=== PATIENT | male | born 1945 | race Caucasian/White ===

== ENCOUNTER 2016-10-28 22:08 | Inpatient (IN) ==
--- NOTE | 2016-10-28 22:56 | Emergency Department Note ---
I, Abbi Trimble, am scribing for, and in the presence of, Shante Adams DO 22: 54. I, Shante Adams DO, personally performed the services described in this documentation, ascribed by Abbi Trimble in my presence, and it is both accurate and complete . Arrival - Arrival Chief Complaint: Extremity Injury Stated Complaint: EXT C/O ED Nursing Triage Note: PT ARRIVES VIA EMS WITH COMPLAINTS OF RIGHT EXT PAIN. PT WAS WALKING AND TURNED TO GO AROUND OBJECT AT HOME AND FELL. PER EMS RIGHT LEG WAS NOTED TO BE DEFORMED AND ROTATED ON SCENE. PT WAS PLACED IN TRACTION ON SCENE. + SENSORY/MOTOR FUNCTION NOTED AT TIME OF TRIAGE. + PEDAL PULSE NOTED. PT DENIES ANY LOC, OR HITTING HEAD WITH FALL AT HOME. PT WAS GIVEN 100MCG FENTANYL IN ROUTE AND IS NOTED TO HAVE SOME SLURRED SPEACH AT THIS TIME Mode of Arrival: Stretcher Limitations: No Limitations Source: Patient Time Seen by Provider: 10/28/16 22:42 - History of Present Illness HPI Narrative: Pt is a 71 y/o male that was brought to the ED via EMS with c/o right hip pain s /p a fall that occurred at home earlier today. Pt states he got up to unplug an electric heater when he turned the wrong way and fell on his right side. Pt reports he has broken his hip in the past and had to have a mario put in, and he reports he thinks he broke his hip again. Per EMS, pt's right leg was deformed and rotated on scene and EMS placed leg in a traction on scene. He states he has trouble talking sometimes and it is normal for him. Pt reports he is a liver transplant pt due to Hep C and he sees Dr. Aquino. Pt's PCP is Dr. Sarmiento at the [facility]. Pt denies a history of stroke. No other complaints/pain in ED at this time. Onset (ago): hour(s) Consistency: constant Severity: moderate Severity scale (1-10): 6 Quality: other Allergies/Adverse Reactions: Allergies Allergy/AdvReac Type Severity Reaction Status Date / Time No Known Allergies Allergy Verified 10/08/15 07:30 Home Medications: Home Medications Medication Instructions Recorded Confirmed Type Aspirin [Ecotrin] 81 mg PO DAILY 10/01/15 10/28/16 History Carbidopa/Levodopa 25-100 [Sinemet 1 tablet PO BEDTIME 10/01/15 10/28/16 History 25-100] Cholecalciferol (Vitamin D3) 2,000 unit PO DAILY 10/01/15 10/28/16 History [Vitamin D3] Furosemide Tab [Lasix Tab] 40 mg PO DAILY 10/01/15 10/28/16 History Nifedipine [Nifedipine ER] 30 mg PO DAILY 10/01/15 10/28/16 History cycloSPORINE [Cyclosporine] 75 mg PO BID 10/01/15 10/28/16 History Omeprazole 20 mg PO AC BREAKFAST 10/04/15 10/28/16 History Calcium Carbonate/Vitamin D3 2 each PO DAILY 03/30/16 10/28/16 History [Calcium 600 + Vit D 400 Tablet] Docusate Sodium 100 mg PO BID 03/30/16 10/28/16 History Multivitamin with Minerals 1 each PO DAILY 03/30/16 10/28/16 History [Multivitamins with Minerals] Review of System - Review of System 12 point system: reviewed and no additional remarkable complaints except as stated - Review of System Respiratory: Absent: cough Cardiovascular: Absent: chest pain Gastrointestinal: Absent: abdominal pain Musculoskeletal: Present: leg pain (right leg and hip pain s/p fall) Neurological: Absent: headache Psychiatric: Absent: anxiety Medical,Surgical,& Family Hx - Medical History Neurology: No history of: Seizures HEENT: History of: Ear Problem (hearing aids) Rheumatology: History of;: Rheumatological Problems (arthritis in back) Respiratory: History of: Obstructive Sleep Apnea (c pap) Gastrointestinal: History of: GERD, Hepatitis (hep c), Liver Problems (liver transplant 2002), Polyps Hematology: No history of: Blood Transfusion Reaction Other: History of: Cancer (skin ca removed 2014) No history of: Anesthesia Reactions - Surgical History Thoracic Surgeries: Surgical HX of;: Organ Transplant (liver) Abdominal Surgeries: Surgical HX of: Colonoscopy, EGD - Family History Family History: Denies;: Family Cancer - Social History Smoking Status: Never smoker Frequency of Alcohol Use: None Type of Drug Use: None Exam Vital Signs: Vital Signs Temperature 98.3 F 10/28/16 22:08 Pulse Rate 62 10/28/16 23:49 Respiratory Rate 14 10/28/16 23:49 Blood Pressure 167/77 10/28/16 23:49 O2 Sat by Pulse Oximetry 100 10/28/16 23:49 - General General appearance: alert, in no apparent distress, other (slight studder which is normal for him) - Head Head exam: Present: atraumatic, normocephalic - Eye Eye exam: Present: PERRL, EOMI - ENT ENT exam: Present: mucous membranes moist. Absent: mucous membranes dry - Neck Neck exam: Present: full ROM. Absent: tenderness - Chest Chest inspection: Present: symmetric chest wall rise. Absent: tenderness - Respiratory Respiratory exam: Present: normal lung sounds bilaterally. Absent: respiratory distress - Cardiovascular Cardiovascular exam: Present: regular rate, normal rhythm, normal heart sounds - Abdominal Exam Abdominal exam: Present: soft. Absent: tenderness - Extremities Exam Extremities exam: Present: other (right leg externally rotated and shortened even with traction on) - Neurological Exam Neurological exam: Present: alert, oriented X3, CN II-XII intact. Absent: motor sensory deficit - Psychiatric Psychiatric exam: Present: normal affect, normal mood - Skin Skin exam: Present: warm, dry Course Course Narrative: spoke with DR Leach and DR Hill and will admit to DR Kumar with Dr Whitman to do ORIF in the am. pt is stable at this time Results - Labs CBC & BMP: 10/28/16 22:57 10/28/16 22:57 Disposition Clinical Impression: Femur fracture, right Case discussed with: patient Disposition: Still a Patient Condition: Stable Time of Disposition: 00:15
[2016-10-28 23:10] LABS: Basophils # 0.1 10*3/uL (0.0-0.2); Basophils % 0.7 % (0.0-0.8); Eosinophils # 0.1 10*3/uL (0.0-0.87); Eosinophils % 1.1 % (0.00-10.9); Hematocrit 31.7 VOL% (42.0-52.0); Hemoglobin 10.4 GM/DL (14.0-18.0); Immature Granulocytes % 0.6 %; Immature Granulocytes Absolute 0.04 #; Lymphocytes # 0.9 10*3/uL (1.4-4.0); Lymphocytes % 12.8 % (21.2-54.2); Mean Corpuscular HGB Conc 32.8 GM/DL (32-36); Mean Corpuscular Hemoglobin 32 PG (27-34); Mean Corpuscular Volume 96.4 FL (87-102); Mean Platelet Volume 11.8 FL (9.6-12.0); Monocytes # 0.5 10*3/uL (0.11-0.8); Monocytes % 7.5 % (1.7-12.7); Neutrophils # 5.6 10*3/uL (1.4-7.4); Neutrophils % 77.3 % (38.7-73.9); Platelet Count 142 T/CUMM (130-400); Red Blood Count 3.29 MC/CUMM (3.8-5.5); Red Cell Distribution Width 13.1 % (9.3-17.3); White Blood Count 7.2 T/CUMM (4-12)
[2016-10-28 23:20] LABS: INR 1.1; Partial Thromboplastin Time 23.7 SECS (0-40)
[2016-10-28 23:30] LABS: Alanine Aminotransferase < 6 U/L (16-61); Albumin 3.3 G/DL (3.4-5.0); Alkaline Phosphatase 89 U/L (45-117); Aspartate Amino Transferase 21 U/L (0-37); Blood Urea Nitrogen 25 MG/DL (7-18); Calcium 8.3 MG/DL (8.5-10.1); Glucose 128 MG/DL (74-106); Potassium 3.4 MMOL/L (3.5-5.1); Sodium 150 MMOL/L (136-145); Total Protein 6.2 G/DL (6.4-8.3)
--- NOTE | 2016-10-28 23:51 | EKG Report ---
Stationary ECG Study [facility] ER Test Date: 10/28/2016 11:49:49 PM Pat Name: DEVYN GALLEGOS Department: Room: Gender: M Supervisor [employer] Education: : 1945 Requested by: Shante Adams Order Number: [id number] Reading MD: JEANNE NEVAREZ Intervals [place] Rate: 59 P: 999 TX: 0 QRS: 1 QRSD: 138 T: 38 QT: 470 QTc: 469 Interpretive Statements TOO MUCH BASELINE ARTIFACT TO BE SURE BUT LIKELY SINUS RHYTHM RIGHT BUNDLE BRANCH BLOCK POOR TRACING Electronically Signed On 10-29-16 06:18:32 EKG TECH by JEANNE NEVAREZ [email or web address]
[2016-10-29] MEDS ORDERED: ONDANSETRON 4 MG/2 ML VIAL IV PRN (00:49)
[2016-10-29] MEDS ORDERED: ACETAMINOPHEN 325 MG TABLET PO PRN (00:49)
[2016-10-29] MEDS ORDERED: MORPHINE 2 MG/1 ML SYRINGE IV PRN ×2 (00:49→13:11)
--- NOTE | 2016-10-29 00:54 | Hospitalist History & Physical ---
Assessment and Plan (1) Hypertension Status: Acute Current Visit: Yes (2) History of liver transplant Status: Acute Current Visit: Yes (3) Hypernatremia Status: Acute Current Visit: Yes (4) History of fracture of right hip Status: Acute Current Visit: Yes (5) Femur fracture, right Status: Acute Assessment and plan: Plan: Admitted for operative repair of the right femur fracture. Supportive care for pain. Continue home medications including his antirejection medication with his history of liver transplant. We'll gently hydrate hypernatremia. Otherwise supportive care. We'll obtain a head CT due to some slurred speech however I think this is likely due to his underlying stuttering and having received a large dose of fentanyl prior to my exam. Current Visit: Yes History of Present Illness Chief complaint: hip pain status post trip and fall getting out of a chair History of present illness: Mr. Mtz is a 71 year old male with history of hepatitis C and cirrhosis, now status post liver transplant in 2002 at [facility], hypertension, GERD, previous right hip fracture, who is here after tripping and falling after getting out of his chair. He reports pain in the right hip has been brought to the emergency room for further evaluation. Apparently he was put in traction by EMS, given a dose of fentanyl, and is not the best historian at the moment. Review of his chart and medications consistent with medical problems as listed above. He denies chest pain, syncope, shortness of breath around the time of the fall. He does have some slurred speech and reports he has a problem with stuttering which he has had for a number of years. He is drowsy but arousable, oriented, however has poor recall of his medical history. He saw Dr. Aquino did his liver transplant. I did go to the medical record to find that it was done back in at [facility]. Home Medications Medication Instructions Recorded Confirmed Type Aspirin [Ecotrin] 81 mg PO DAILY 10/01/15 10/28/16 History Carbidopa/Levodopa 25-100 [Sinemet 1 tablet PO BEDTIME 10/01/15 10/28/16 History 25-100] Cholecalciferol (Vitamin D3) 2,000 unit PO DAILY 10/01/15 10/28/16 History [Vitamin D3] Furosemide Tab [Lasix Tab] 40 mg PO DAILY 10/01/15 10/28/16 History Nifedipine [Nifedipine ER] 30 mg PO DAILY 10/01/15 10/28/16 History cycloSPORINE [Cyclosporine] 75 mg PO BID 10/01/15 10/28/16 History Omeprazole 20 mg PO AC BREAKFAST 10/04/15 10/28/16 History Calcium Carbonate/Vitamin D3 2 each PO DAILY 03/30/16 10/28/16 History [Calcium 600 + Vit D 400 Tablet] Docusate Sodium 100 mg PO BID 03/30/16 10/28/16 History Multivitamin with Minerals 1 each PO DAILY 03/30/16 10/28/16 History [Multivitamins with Minerals] Allergies Allergy/AdvReac Type Severity Reaction Status Date / Time No Known Allergies Allergy Verified 10/08/15 07:30 Medical,Surgical,& Family Hx - Medical History Neurology: No history of: Seizures HEENT: History of: Ear Problem (hearing aids) Rheumatology: History of;: Rheumatological Problems (arthritis in back) Respiratory: History of: Obstructive Sleep Apnea (c pap) Gastrointestinal: History of: GERD, Hepatitis (hep c), Liver Problems (liver transplant 2002), Polyps Hematology: No history of: Blood Transfusion Reaction Other: History of: Cancer (skin ca removed 2014) No history of: Anesthesia Reactions - Surgical History Thoracic Surgeries: Surgical HX of;: Organ Transplant (liver) Abdominal Surgeries: Surgical HX of: Colonoscopy, EGD - Family History Family History: Denies;: Family Cancer - Social History Smoking Status: Never smoker Frequency of Alcohol Use: None Type of Drug Use: None Marital Status: Unknown Functional capacity: independent ambulation Review of systems: A 12 point review of systems is negative except as specified in the HPI Exam - Constitutional Vitals: Period Temp Pulse Resp BP Sys/Leonardo Pulse Ox Last 24 Hr 98.3 F 60-68 14-20 136-167/65-106 99-100 Exam: EXAM: CONSTITUTIONAL: non toxic, NAD HEENT: NC, AT, OP benign, JODY, EOMI CV: RRR no m/g/r RESP: clear B/L, no w/r/r GI: abd soft, NT, ND, +bowel sounds INTEGUMENTARY: no lesions or rash EXTREMITIES: Right lower extremity in traction, currently nontender, pedal pulses intact NEURO: no focal deficits PSYCH: Drowsy but arousable, oriented Results - Labs CBC & BMP: 10/28/16 22:57 10/28/16 22:57 Lab Results: I have reviewed the past 24 hour labs - EKG EKG shows: sinus rhythm (sinus, significant artifact) - Diagnostic Findings Procedure: Chest x-ray: image reviewed by me, X-ray: image reviewed by me Quality Measures - VTE Contraindication to Pharmacological VTE Prophylaxis: High Risk of Bleeding
[2016-10-29] MEDS ORDERED: SODIUM CHLORIDE 0.45% 1,000 ML IV SCH (02:00)
[2016-10-29 06:49] LABS: Basophils % 0.4 % (0.0-0.8); Eosinophils % 0.2 % (0.00-10.9); Hemoglobin 9.6 GM/DL (14.0-18.0); Immature Granulocytes % 0.5 %; Immature Granulocytes Absolute 0.04 #; Lymphocytes % 11.4 % (21.2-54.2); Mean Corpuscular HGB Conc 33.1 GM/DL (32-36); Mean Corpuscular Hemoglobin 31 PG (27-34); Mean Corpuscular Volume 94.2 FL (87-102); Mean Platelet Volume 12.4 FL (9.6-12.0); Monocytes # 0.9 10*3/uL (0.11-0.8); Monocytes % 10.2 % (1.7-12.7); Neutrophils # 6.5 10*3/uL (1.4-7.4); Neutrophils % 77.3 % (38.7-73.9); Platelet Count 132 T/CUMM (130-400); Red Blood Count 3.08 MC/CUMM (3.8-5.5); Red Cell Distribution Width 13.2 % (9.3-17.3); White Blood Count 8.4 T/CUMM (4-12)
[2016-10-29] MEDS ORDERED: ceFAZolin 2,000 MG in PREMIX 1 EACH IV ONE (06:58)
[2016-10-29 07:15] LABS: Alanine Aminotransferase < 6 U/L (16-61); Alkaline Phosphatase 85 U/L (45-117); Aspartate Amino Transferase 21 U/L (0-37); Blood Urea Nitrogen 20 MG/DL (7-18); Calcium 8.1 MG/DL (8.5-10.1); Glucose 126 MG/DL (74-106); Osmolality,Calculated 300.1 MOS/KG (273-304); Potassium 4.5 MMOL/L (3.5-5.1); Sodium 149 MMOL/L (136-145); Total Protein 5.7 G/DL (6.4-8.3)
--- NOTE | 2016-10-29 07:56 | CT Report ---
Referring physician: Joe Rodriguez MD Exam: CT brain without contrast Date: 10/29/2016 Comparison: 03/30/2016 Reason: Alteration of consciousness Technique: Axial images of the head were obtained without the use of contrast. This exam was initially interpreted by [facility]. Total DLP was 1025.60 mGy*cm. Findings: No hydrocephalus or midline shift is present. There is no evidence of an acute infarction, recent intracranial hemorrhage or abnormal mass effect. Diffuse atrophy and cerebral hypodensities. Benign calcifications. The osseous structures appear intact. The mastoid air cells are clear. Chronic minimal mucosal thickening/fluid in the right ethmoid air cells. Impression: No acute intracranial abnormality is identified. The CT exam was performed using one or more of the following dose reduction techniques: Automated exposure control and adjustment of the mA and/or kV according to patient size. PROCEDURE INTERPRETED AT [facility] DEPARTMENT OF RADIOLOGY Final Report Signed by: Dr. Stacey Green
--- NOTE | 2016-10-29 08:10 | XRay Report ---
Exam: XR hip 2v w pelvis RT Date: 10/28/2016 10:54 PM Comparison: 02/29/2016 Indication: Pain after fall Technique: AP pelvis, AP and lateral right hip. Findings: Old healed proximal right femoral fracture with stable postoperative findings. Heterotopic ossification between the lesser trochanter and the left ischium. Soft tissue calcifications. Acute displaced fracture of the mid right femur. Persistent hip joint space narrowing. Impression: Old healed proximal right femoral fracture with postoperative findings and heterotopic bone formation. Acute displaced fracture of the mid right femur with persistent degenerative changes. PROCEDURE INTERPRETED AT [facility] DEPARTMENT OF RADIOLOGY Final Report Signed by: Dr. Stacey Green
--- NOTE | 2016-10-29 08:11 | Orthopedic Consult Note ---
History of Present Illness Chief complaint: right thigh pain History of present illness: Mr. Mtz is a 71 year old male who fell yesterday while going to the bathroom. The patient has a history of a previous proximal femur fracture sustained in the . The patient underwent open reduction fixation with a Reyez Aparicio style device. The patient sustained a femur fracture distal to the hardware. The patient states that he does have shortening of his extremity from this previous injury and has had right knee stiffness. The patient lives at home with his . The patient uses a cane to ambulate. Occasionally he walks independently. He has a history of a liver transplant that was performed in [place] in 2002. He denies any other injury. Alert and oriented Other extremities and spine without acute deformity or tenderness. Right lower extremity is externally rotated. Moderate swelling involving his thigh. His previous incision is well-healed. Patient can flex and extend his toes and ankles. Sensation is grossly intact to light touch. He has a 2+ dorsalis pedis pulse. Radiographs femur demonstrate a well-healed prior proximal femur fracture with a Reyez Aparicio style device. Patient has a oblique fracture distal to his hardware. He also has severe knee osteoarthritis. Impression: Right femur fracture below pre-existing hardware Plan: I have advised hardware removal with intramedullary nailing. Risks and benefits of the procedure were discussed. Risks include but not limited to infection, bleeding, anesthesia, thromboembolic event, , failure to heal, etc. Home Medications Medication Instructions Recorded Confirmed Type Aspirin [Ecotrin] 81 mg PO DAILY 10/01/15 10/28/16 History Carbidopa/Levodopa 25-100 [Sinemet 1 tablet PO BEDTIME 10/01/15 10/28/16 History 25-100] Cholecalciferol (Vitamin D3) 2,000 unit PO DAILY 10/01/15 10/28/16 History [Vitamin D3] Furosemide Tab [Lasix Tab] 40 mg PO DAILY 10/01/15 10/28/16 History Nifedipine [Nifedipine ER] 30 mg PO DAILY 10/01/15 10/28/16 History cycloSPORINE [Cyclosporine] 75 mg PO BID 10/01/15 10/28/16 History Omeprazole 20 mg PO AC BREAKFAST 10/04/15 10/28/16 History Calcium Carbonate/Vitamin D3 2 each PO DAILY 03/30/16 10/28/16 History [Calcium 600 + Vit D 400 Tablet] Docusate Sodium 100 mg PO BID 03/30/16 10/28/16 History Multivitamin with Minerals 1 each PO DAILY 03/30/16 10/28/16 History [Multivitamins with Minerals] Allergies Allergy/AdvReac Type Severity Reaction Status Date / Time No Known Allergies Allergy Verified 10/08/15 07:30 12 point system: reviewed and no additional remarkable complaints except as stated Medical,Surgical,& Family Hx - Medical History Neurology: No history of: Seizures HEENT: History of: Ear Problem (hearing aids) Rheumatology: History of;: Rheumatological Problems (arthritis in back) Respiratory: History of: Obstructive Sleep Apnea (c pap) Gastrointestinal: History of: GERD, Hepatitis (hep c), Liver Problems (liver transplant 2002), Polyps Musculoskeletal: History of: Back/Neck Problems (herniated disc) Hematology: No history of: Blood Transfusion Reaction Other: History of: Cancer (skin ca removed 2014) No history of: Anesthesia Reactions - Surgical History Thoracic Surgeries: Surgical HX of;: Organ Transplant (liver) Abdominal Surgeries: Surgical HX of: Colonoscopy, EGD - Family History Family History: Denies;: Family Cancer - Social History Smoking Status: Never smoker Frequency of Alcohol Use: None Type of Drug Use: None Exam - Constitutional Vitals: Period Temp Pulse Resp BP Sys/Leonardo Pulse Ox Last 24 Hr 97 F-98.2 F 58-71 18-20 139-143/49-77 95-100 Results - Labs CBC & BMP: 10/29/16 06:11 10/29/16 06:11 Assessment and Plan (1) Femur fracture, right Status: Acute Current Visit: Yes Qualifiers: Encounter type: initial encounter Femur location: shaft Fracture type: closed Fracture morphology: oblique Fracture alignment: displaced Qualified Code(s): S72.331A - Displaced oblique fracture of shaft of right femur , initial encounter for closed fracture (2) History of fracture of right hip Status: Acute Current Visit: Yes (3) Arthritis of knee, degenerative Status: Acute Current Visit: Yes Qualifiers: Osteoarthritis type: primary Laterality: right Qualified Code(s): M17.11 - Unilateral primary osteoarthritis, right knee
--- NOTE | 2016-10-29 08:13 | XRay Report ---
Exam: XR femur RT Date: 10/28/2016 12:00 AM Comparison: 02/29/2016 Indication: Pain after fall Technique: AP and lateral right femur Findings: Old healed proximal right femoral fracture with stable postoperative findings. Heterotopic ossification between the lesser trochanter in the left ischium. Acute displaced oblique fracture of the mid to distal right femur. There is anterolateral displacement of the distal fracture fragment. Joint space narrowing especially in the knee with articular and soft tissue calcifications. Old healed fracture of the proximal right fibula. Impression: Old healed proximal right femoral fracture with postoperative findings. Acute displaced oblique fracture of the mid to distal right femur. Degenerative changes especially in the knee with additional old healed proximal right fibular fracture. PROCEDURE INTERPRETED AT [facility] DEPARTMENT OF RADIOLOGY Final Report Signed by: Dr. Stacey Green
--- NOTE | 2016-10-29 08:14 | XRay Report ---
Portable chest Date:[10/28/2016] Clinical history: Fall, respiratory preoperative evaluation, Comparison: 03/30/2016 Technique: Portable AP sitting chest Findings: The heart is minimally enlarged. Chronic scarring in the lungs with stable mediastinum. Degenerative changes are noted. Impression: Chronic scarring in the right middle lobe with calcified granulomata. The heart is minimally enlarged. PROCEDURE INTERPRETED AT [facility] DEPARTMENT OF RADIOLOGY Final Report Signed by: Dr. Stacey Green
[2016-10-29] MEDS ORDERED: PROPOFOL 200 MG/20 ML VIAL IV ONE (09:46)
[2016-10-29] MEDS ORDERED: ROCURONIUM 100 MG/10 ML VIAL IV ONE (09:46)
[2016-10-29] MEDS ORDERED: ONDANSETRON 4 MG/2 ML VIAL ONE (09:46)
[2016-10-29] MEDS ORDERED: LIDOCAINE 2% 5 ML VIAL ONE (09:46)
[2016-10-29] MEDS ORDERED: TRANEXAMIC ACID 1,000 MG/10 ML VIAL IV ONE (10:44)
[2016-10-29] MEDS ORDERED: BACITRACIN OINT 0.9 GM PACK TOP ONE (12:29)
--- NOTE | 2016-10-29 13:07 | Operative Note ---
Procedure: DIAGNOSIS: Right distal third femur fracture below existing hardware PROCEDURE: Intramedullary nailing right femur (CPT# 00202). Hardware removal deep right femur (CPT#87119) SURGEON: Sergio ANESTHESIA: General PROCEDURE and FINDINGS: Adequate anesthesia was induced, the patient was placed in the lateral decubitus position. His limb was prepped and draped in usual sterile fashion. His previous incision was too anterior. A new incision was placed posterior laterally. A lateral approach was made to the femur. Skin and subcutaneous tissue was incised. The iliotibial band was incised and vastus lateralis was elevated from the intramuscular septum and lateral aspect of the femur. His previous hardware was encased entirely in bone. Bone was osteotomized off of the plate and left with soft tissue attachments. 7 screws were removed followed by the plate. A longitudinal incision was then made proximal to his greater trochanter. Skin and deep fascia was incised longitudinally. Guidepin was placed overreamed. A beaded guidewire was placed. A 13 mm flexible reamer was passed to help energy sales broker size of the canal. A 13 x 380 mm Synthes lateral entry femoral nail was placed. The beaded guidewire was removed. The nail was locked proximally in the cephalo-medullary fashion through the superior slot. Using a freehand technique to distal interlocks were placed. A 0 mm endcap was placed. The wounds were copiously irrigated and closed deep with 0 Vicryl [id number] sutures. Subcutaneous tissue was closed deep with a 2-0 Vicryl runner and superficially with interrupted, buried 3-0 Vicryl suture. Skin was closed with kei. Image intensification was used in multiple planes throughout the procedure. EBL: 200 mL Surgeon / Physician: Roman Hill Jr. Results - Labs CBC & BMP: 10/29/16 06:11 10/29/16 06:11 Discharge Plan - Discharge Medications No Action Nifedipine [Nifedipine ER] 30 mg PO DAILY Furosemide Tab [Lasix Tab] 40 mg PO DAILY cycloSPORINE [Cyclosporine] 75 mg PO BID Cholecalciferol (Vitamin D3) [Vitamin D3] 2,000 unit PO DAILY Aspirin [Ecotrin] 81 mg PO DAILY Carbidopa/Levodopa 25-100 [Sinemet 25-100] 1 tablet PO BEDTIME Omeprazole 20 mg PO AC BREAKFAST Calcium Carbonate/Vitamin D3 [Calcium 600 + Vit D 400 Tablet] 2 each PO DAILY Docusate Sodium 100 mg PO BID Multivitamin with Minerals [Multivitamins with Minerals] 1 each PO DAILY - Follow Up or Referral - Forms/Instructions
[2016-10-29] MEDS: KETOROLAC 30 MG/1 ML VIAL IV SCH ×2 (13:29→20:22)
[2016-10-29] MEDS ORDERED: SEVOFLURANE 1 UNIT/15 MINUTE INH ONE (13:31)
[2016-10-29] MEDS ORDERED: MORPHINE 10 MG/10 ML VIAL ONE (13:32)
[2016-10-29] MEDS ORDERED: MIDAZOLAM 2 MG/2 ML VIAL ONE (13:32)
[2016-10-29] MEDS ORDERED: fentaNYL 100 MCG/2 ML VIAL ONE (13:32)
[2016-10-29] MEDS ORDERED: LACTATED RINGERS 1,000 ML IV ONE (13:32)
[2016-10-29] MEDS ORDERED: KETAMINE 500 MG/10 ML VIAL ONE (13:32)
[2016-10-29] MEDS ORDERED: ePHEDrine 50 MG/ML AMP ONE (13:32)
--- NOTE | 2016-10-29 13:45 | XRay Report ---
Exam: XR femur RT Date: 10/29/2016 12:00 AM Comparison: 10/28/2016 Indication: Retrograde IM rodding with hardware removal Technique: Fluoroscopy time of 2 minutes 18 seconds documented. AP and lateral C-arm films were obtained. Findings: Evidence of old healed proximal right femoral fracture with removal of the previously noted sideplate and screws. Insertion of intramedullary mario with screws in the right femur. Improvement in the alignment of the previously noted displaced oblique fracture of the mid to distal right femur. Soft tissue calcifications are noted. Impression: Interval removal of the metallic hardware from the proximal right femur with insertion of intramedullary mario and compression screws. Improved alignment of the displaced oblique fracture of the mid to distal right femur. PROCEDURE INTERPRETED AT [facility] DEPARTMENT OF RADIOLOGY Final Report Signed by: Dr. Stacey Green
[2016-10-29] MEDS: FUROSEMIDE 40 MG TABLET PO SCH (14:11)
[2016-10-29] MEDS: PANTOPRAZOLE 40 MG TABLET PO SCH (14:11)
[2016-10-29] MEDS: MULTIVITAMIN (CENTRUM) TABLET PO SCH (14:11)
[2016-10-29] MEDS: cycloSPORINE 25 MG CAPSULE PO SCH ×2 (14:11→20:22)
[2016-10-29] MEDS: CALCIUM (CARBONATE)/VITAMIN D 600 MG-400 UNIT TABLET PO SCH (14:11)
[2016-10-29] MEDS: DOCUSATE SODIUM 100 MG CAPSULE PO SCH ×2 (14:11→20:21)
[2016-10-29] MEDS: CHOLECALCIFEROL 1,000 UNIT TABLET PO SCH (14:12)
--- NOTE | 2016-10-29 14:49 | XRay Report ---
Exam: XR femur RT Date: 10/29/2016 2:05 PM Comparison: 10/29/2016, 10/28/2016 Indication: Postop Technique: AP and lateral right femur Findings: Old healed fracture of the proximal right femur with recent removal of the metallic hardware in this location. Insertion of an intramedullary nail in the right femur with compression screws. Stable acute displaced spiral fracture of the mid to distal right femur when compared to intraoperative films. Soft tissue calcifications are noted with arterial calcifications. Stable degenerative changes. Impression: Stable postoperative findings with the acute oblique fracture of the distal right femur remaining in satisfactory position alignment for healing. Old healed proximal right femoral fracture with recent removal of hardware. Stable degenerative changes. PROCEDURE INTERPRETED AT [facility] DEPARTMENT OF RADIOLOGY Final Report Signed by: Dr. Stacey Green
--- NOTE | 2016-10-29 16:30 | Anesthesia ---
Anesthesia Post OP - Post Ansesthetic Evaluation Patient seen in post op: Yes Resp: within normal limits CV: within normal limits Mental: within normal limits Temp: within normal limits [id number]: within normal limits Nausea and Vomiting: within normal limits Pain: within normal limits
--- NOTE | 2016-10-29 16:35 | Orthopedic Progress Note ---
Assessment and Plan (1) Femur fracture, right Status: Acute Current Visit: Yes Qualifiers: Encounter type: initial encounter Femur location: shaft Fracture type: closed Fracture morphology: oblique Fracture alignment: displaced Qualified Code(s): S72.331A - Displaced oblique fracture of shaft of right femur , initial encounter for closed fracture (2) History of fracture of right hip Status: Acute Current Visit: Yes (3) Arthritis of knee, degenerative Status: Acute Current Visit: Yes Qualifiers: Osteoarthritis type: primary Laterality: right Qualified Code(s): M17.11 - Unilateral primary osteoarthritis, right knee Orthopedics - Subjective Interval history: Comfortable postop. Dressing clean, dry and intact. Right lower extremity neurovascularly intact. Plan: Continue with orders. Exam - Constitutional Vitals: Period Temp Pulse Resp BP Sys/Leonardo Pulse Ox Last 24 Hr 97 F-98.2 F 58-72 14-20 133-167/49-83 95-100 Results - Labs CBC & BMP: 10/29/16 06:11 10/29/16 06:11 Quality Measures - VTE Contraindication to Pharmacological VTE Prophylaxis: High Risk of Bleeding
[2016-10-29] MEDS: ceFAZolin 2,000 MG in PREMIX 1 EACH IV SCH (18:02)
[2016-10-29] MEDS: CARBIDOPA/LEVODOPA 25-100 MG TABLET PO SCH (20:22)
[2016-10-29] MEDS: DEXTROSE 5% LACTATED RINGERS 1,000 ML IV SCH ×2 (20:25→22:31)
[2016-10-30] MEDS: KETOROLAC 30 MG/1 ML VIAL IV SCH ×2 (01:14→09:38)
[2016-10-30] MEDS: ceFAZolin 2,000 MG in PREMIX 1 EACH IV SCH (01:15)
[2016-10-30] MEDS: DEXTROSE 5% LACTATED RINGERS 1,000 ML IV SCH (06:45)
[2016-10-30] MEDS: FONDAPARINUX 2.5 MG/0.5 ML SYRINGE SUBCUT SCH (06:45)
[2016-10-30 06:53] LABS: Calcium 7.3 MG/DL (8.5-10.1); Osmolality,Calculated 295.4 MOS/KG (273-304); Potassium 4.3 MMOL/L (3.5-5.1)
[2016-10-30 08:04] LABS: Basophils % 0.1 % (0.0-0.8); Eosinophils % 0.5 % (0.00-10.9); Hematocrit 21.4 VOL% (42.0-52.0); Immature Granulocytes % 0.4 %; Immature Granulocytes Absolute 0.03 #; Lymphocytes # 1.1 10*3/uL (1.4-4.0); Mean Corpuscular HGB Conc 32.7 GM/DL (32-36); Mean Corpuscular Hemoglobin 31 PG (27-34); Mean Corpuscular Volume 95.5 FL (87-102); Monocytes # 0.9 10*3/uL (0.11-0.8); Monocytes % 11.7 % (1.7-12.7); Neutrophils # 5.5 10*3/uL (1.4-7.4); Neutrophils % 73.3 % (38.7-73.9); Red Cell Distribution Width 13.3 % (9.3-17.3); White Blood Count 7.5 T/CUMM (4-12)
[2016-10-30 08:10] LABS: Platelet Count 102 T/CUMM (130-400); Red Blood Count 2.24 MC/CUMM (3.8-5.5)
--- NOTE | 2016-10-30 09:12 | Orthopedic Progress Note ---
Assessment and Plan (1) Femur fracture, right Status: Acute Current Visit: Yes Qualifiers: Encounter type: initial encounter Femur location: shaft Fracture type: closed Fracture morphology: oblique Fracture alignment: displaced Qualified Code(s): S72.331A - Displaced oblique fracture of shaft of right femur , initial encounter for closed fracture (2) History of fracture of right hip Status: Acute Current Visit: Yes (3) Arthritis of knee, degenerative Status: Acute Current Visit: Yes Qualifiers: Osteoarthritis type: primary Laterality: right Qualified Code(s): M17.11 - Unilateral primary osteoarthritis, right knee Orthopedics - Subjective Interval history: Comfortable. Dressings dry. NV ok. Mobilize with therapy. Stop iv fluids. Start arixtra for dvt prophylaxis. Exam - Constitutional Vitals: Period Temp Pulse Resp BP Sys/Leonardo Pulse Ox Last 24 Hr 97.4 F-98.8 F 60-88 12-20 113-167/61-83 96-100 Results - Labs CBC & BMP: 10/30/16 07:52 10/30/16 05:18 Quality Measures - VTE Contraindication to Pharmacological VTE Prophylaxis: High Risk of Bleeding
[2016-10-30] MEDS ORDERED: KETOROLAC 30 MG/1 ML VIAL ONE (09:29)
[2016-10-30] MEDS: CALCIUM (CARBONATE)/VITAMIN D 600 MG-400 UNIT TABLET PO SCH (09:32)
[2016-10-30] MEDS: MULTIVITAMIN (CENTRUM) TABLET PO SCH (09:32)
[2016-10-30] MEDS: DOCUSATE SODIUM 100 MG CAPSULE PO SCH ×2 (09:32→21:01)
[2016-10-30] MEDS: PANTOPRAZOLE 40 MG TABLET PO SCH (09:32)
[2016-10-30] MEDS: CHOLECALCIFEROL 1,000 UNIT TABLET PO SCH (09:33)
[2016-10-30] MEDS: FUROSEMIDE 40 MG TABLET PO SCH (09:33)
[2016-10-30] MEDS: cycloSPORINE 25 MG CAPSULE PO SCH ×2 (09:33→21:00)
[2016-10-30] MEDS ORDERED: SODIUM CHLORIDE 0.9% 250 ML IV PRN (12:45)
[2016-10-30] MEDS ORDERED: FUROSEMIDE 20 MG/2 ML VIAL IV PRN (12:45)
--- NOTE | 2016-10-30 13:02 | Hospitalist Progress Note ---
Assessment and Plan (1) Femur fracture, right Status: Acute Assessment and plan: Status post surgical repair by orthopedic service, PT/OT, pain med prn Current Visit: Yes Qualifiers: Encounter type: initial encounter Femur location: shaft Fracture type: closed Fracture morphology: oblique Fracture alignment: displaced Qualified Code(s): S72.331A - Displaced oblique fracture of shaft of right femur , initial encounter for closed fracture (2) Normocytic anemia Status: Acute Assessment and plan: Worsening. Hemoglobin 7. PRBC transfusion ordered Monitor H&H and hold Lovenox for now. FOBT Current Visit: Yes (3) History of liver transplant Status: Chronic Current Visit: Yes (4) Hypernatremia Status: Acute Assessment and plan: Improving Current Visit: Yes (5) History of fracture of right hip Status: Chronic Current Visit: Yes (6) Hypertension Status: Chronic Current Visit: Yes Hospitalist: Subjective Interval history: Patient on the recliner chair next to bed and family members visiting. Patient stating he feels better. Patient denies any pain in his leg and denies chest pain or shortness of breath or nausea or vomiting, fever or chills or melena or hemoptysis or hematemesis. No overnight acute events reported. Hemoglobin this morning was 7. Exam - Constitutional Vitals: Period Temp Pulse Resp BP Sys/Leonardo Pulse Ox Last 24 Hr 97.4 F-98.8 F 60-88 12-20 113-167/61-83 96-100 Exam: Gen: Alert and oriented, knew the name and location but not the day and the month of the year. NAD Neck: no jvd, supple lung: ctab, no wheezing Heart: s1s2, rrr abd: soft , NT Ext: RLE swelling skin: warm, dry psych: cooperative Results - Labs CBC & BMP: 10/30/16 07:52 10/30/16 05:18 Quality Measures - VTE Contraindication to Pharmacological VTE Prophylaxis: High Risk of Bleeding
[2016-10-30] MEDS: CARBIDOPA/LEVODOPA 25-100 MG TABLET PO SCH (21:01)
[2016-10-31] MEDS: FONDAPARINUX 2.5 MG/0.5 ML SYRINGE SUBCUT SCH (06:36)
[2016-10-31 06:58] LABS: Basophils % 0.2 % (0.0-0.8); Eosinophils % 0.2 % (0.00-10.9); Hematocrit 27.1 VOL% (42.0-52.0); Immature Granulocytes % 0.6 %; Immature Granulocytes Absolute 0.05 #; Lymphocytes # 0.8 10*3/uL (1.4-4.0); Lymphocytes % 10.1 % (21.2-54.2); Mean Corpuscular HGB Conc 33.6 GM/DL (32-36); Mean Corpuscular Hemoglobin 30 PG (27-34); Mean Platelet Volume 12.4 FL (9.6-12.0); Monocytes % 11.6 % (1.7-12.7); Neutrophils # 6.4 10*3/uL (1.4-7.4); Neutrophils % 77.3 % (38.7-73.9); Red Cell Distribution Width 14.4 % (9.3-17.3); White Blood Count 8.3 T/CUMM (4-12)
[2016-10-31 07:00] LABS: Hemoglobin 9.1 GM/DL (14.0-18.0); Platelet Count 97 T/CUMM (130-400); Red Blood Count 3.01 MC/CUMM (3.8-5.5)
[2016-10-31 07:20] LABS: Hypochromasia 1+; Lymphocytes 15 % (20-55); Platelet Estimate Decreased; Segmented Neutrophils 75 % (50-85); Total Cells Counted 100
--- NOTE | 2016-10-31 08:37 | Orthopedic Progress Note ---
Assessment and Plan (1) Femur fracture, right Status: Acute Current Visit: Yes Qualifiers: Encounter type: initial encounter Femur location: shaft Fracture type: closed Fracture morphology: oblique Fracture alignment: displaced Qualified Code(s): S72.331A - Displaced oblique fracture of shaft of right femur , initial encounter for closed fracture (2) History of fracture of right hip Status: Chronic Current Visit: Yes (3) Arthritis of knee, degenerative Status: Acute Current Visit: Yes Qualifiers: Osteoarthritis type: primary Laterality: right Qualified Code(s): M17.11 - Unilateral primary osteoarthritis, right knee Orthopedics - Subjective Interval history: Mr Mtz is comfortable this morning. He received blood yesterday for acute blood loss anemia on top of chronic anemia. Dressings are clean, dry and intact. Right lower extremity is neurovascularly unchanged. Plan: Continue with physical therapy. Discharge planning. Exam - Constitutional Vitals: Period Temp Pulse Resp BP Sys/Leonardo Pulse Ox Last 24 Hr 98.3 F-100.5 F 72-95 18-20 130-166/61-85 94-97 Results - Labs CBC & BMP: 10/31/16 06:29 10/30/16 05:18 Quality Measures - VTE Contraindication to Pharmacological VTE Prophylaxis: High Risk of Bleeding
[2016-10-31] MEDS: PANTOPRAZOLE 40 MG TABLET PO SCH (09:52)
[2016-10-31] MEDS: DOCUSATE SODIUM 100 MG CAPSULE PO SCH ×2 (09:52→21:58)
[2016-10-31] MEDS: MULTIVITAMIN (CENTRUM) TABLET PO SCH (09:52)
[2016-10-31] MEDS: CALCIUM (CARBONATE)/VITAMIN D 600 MG-400 UNIT TABLET PO SCH (09:52)
[2016-10-31] MEDS: FUROSEMIDE 40 MG TABLET PO SCH (09:52)
[2016-10-31] MEDS: cycloSPORINE 25 MG CAPSULE PO SCH ×2 (09:53→21:57)
[2016-10-31] MEDS: CHOLECALCIFEROL 1,000 UNIT TABLET PO SCH (09:53)
[2016-10-31] MEDS: MAGNESIUM HYDROXIDE SUSP 30 ML UDCUP PO PRN (14:17)
[2016-10-31] MEDS: CARBIDOPA/LEVODOPA 25-100 MG TABLET PO SCH (21:57)
[2016-11-01 06:15] LABS: Basophils % 0.2 % (0.0-0.8); Eosinophils # 0.1 10*3/uL (0.0-0.87); Eosinophils % 1.1 % (0.00-10.9); Hematocrit 26.8 VOL% (42.0-52.0); Hemoglobin 8.7 GM/DL (14.0-18.0); Immature Granulocytes % 0.6 %; Immature Granulocytes Absolute 0.05 #; Lymphocytes # 0.9 10*3/uL (1.4-4.0); Mean Corpuscular HGB Conc 32.5 GM/DL (32-36); Mean Corpuscular Hemoglobin 30 PG (27-34); Mean Corpuscular Volume 92.7 FL (87-102); Mean Platelet Volume 12.2 FL (9.6-12.0); Monocytes % 10.9 % (1.7-12.7); Neutrophils # 6.8 10*3/uL (1.4-7.4); Neutrophils % 77.2 % (38.7-73.9); Platelet Count 99 T/CUMM (130-400); Red Blood Count 2.89 MC/CUMM (3.8-5.5); Red Cell Distribution Width 13.9 % (9.3-17.3); White Blood Count 8.7 T/CUMM (4-12)
[2016-11-01 06:36] LABS: Hypochromasia Slight; Platelet Estimate Decreased
[2016-11-01] MEDS: FONDAPARINUX 2.5 MG/0.5 ML SYRINGE SUBCUT SCH (06:40)
--- NOTE | 2016-11-01 08:12 | Orthopedic Progress Note ---
Assessment and Plan (1) Femur fracture, right Status: Acute Current Visit: Yes Qualifiers: Encounter type: initial encounter Femur location: shaft Fracture type: closed Fracture morphology: oblique Fracture alignment: displaced Qualified Code(s): S72.331A - Displaced oblique fracture of shaft of right femur , initial encounter for closed fracture (2) History of fracture of right hip Status: Chronic Current Visit: Yes (3) Arthritis of knee, degenerative Status: Acute Current Visit: Yes Qualifiers: Osteoarthritis type: primary Laterality: right Qualified Code(s): M17.11 - Unilateral primary osteoarthritis, right knee Orthopedics - Subjective Interval history: Mr Mtz is improving. He was able to ambulate in the myles yesterday. Dressing he has serosanguineous drainage. His right lower extremity is neurovascularly unchanged. Plan: Stop Arixtra. Switched to aspirin 81 mg daily for DVT prophylaxis. Continue physical therapy. Discharged to [facility] when bed available. Daily dry dressing changes. Arrange for walker and bedside commode for home use. Wear TORI hose for 1 month. Follow-up appointment in 4 weeks. Discontinue kei and Steri-Strip wound on 11/09/2016. 30 pounds partial weightbearing with walker protection. Aspirin 81 mg daily for DVT prophylaxis for 3 weeks. Exam - Constitutional Vitals: Period Temp Pulse Resp BP Sys/Leonardo Pulse Ox Last 24 Hr 98.1 F-99.6 F 73-87 16-18 118-137/66-71 96-100 Results - Labs CBC & BMP: 11/01/16 05:50 10/30/16 05:18 Quality Measures - VTE Contraindication to Pharmacological VTE Prophylaxis: High Risk of Bleeding
[2016-11-01] MEDS ORDERED: ASPIRIN EC 81 MG TABLET PO SCH (09:00)
[2016-11-01] MEDS: CHOLECALCIFEROL 1,000 UNIT TABLET PO SCH (09:21)
[2016-11-01] MEDS: CALCIUM (CARBONATE)/VITAMIN D 600 MG-400 UNIT TABLET PO SCH (09:22)
[2016-11-01] MEDS: MULTIVITAMIN (CENTRUM) TABLET PO SCH (09:22)
[2016-11-01] MEDS: DOCUSATE SODIUM 100 MG CAPSULE PO SCH (09:22)
[2016-11-01] MEDS: FUROSEMIDE 40 MG TABLET PO SCH (09:22)
[2016-11-01] MEDS: PANTOPRAZOLE 40 MG TABLET PO SCH (09:22)
[2016-11-01] MEDS: MAGNESIUM HYDROXIDE SUSP 30 ML UDCUP PO PRN (09:22)
[2016-11-01] MEDS: cycloSPORINE 25 MG CAPSULE PO SCH (10:07)
[2016-11-01] MEDS ORDERED: BISACODYL 10 MG SUPP RECTAL PRN (11:15)
--- NOTE | 2016-11-01 11:39 | Discharge Summary ---
Hospital Course - Hospital Course Hospital Course: Mr. Mtz is a 71-year-old male history of hepatits C causing cirrhosis who had a liver transplant in the past. He presented here after fall at home causing a right femur fracture. It appeared that he had a fracture in the 80s and already had hardware in the hip. Patient was mated to regular medicine floor he was already in traction as ordered by orthopedics. His pain is actually controlled. Orthopedics was consulted and he did take to the OR to do removal of the heart where with Emily and you can see orthopedics for operative note for details. Patient tolerated procedure without complications. He did have some postoperative anemia which he was transfused 2 units of packed red blood cells. There is no bleeding at the site his hemoglobin hematocrit is remained stable. His Lazaro catheters been removed and his pain is moderately controlled. He is now stable to be discharged to inpatient rehabilitation. Diagnosis - Discharge Diagnosis (1) Femur fracture, right Status: Acute (2) History of liver transplant Status: Chronic (3) Hypertension Status: Chronic Specialty Discharge - Follow Up or Referrals Follow up with: Roman Hill Jr., MD [Physician] - 11/29/16 1:15 pm Discharge Plan - Discharge Data Disposition: Disch/Xfer-Ip Rehab Fac Condition at Discharge: Stable Discharge Diet: advance to your usual diet Activity: as per physical therapy Contact your physician if you experience:: fever over 101, Shortness of breath, Bleeding - Discharge Medications Continue Nifedipine [Nifedipine ER] 30 mg PO DAILY Furosemide Tab [Lasix Tab] 40 mg PO DAILY cycloSPORINE [Cyclosporine] 75 mg PO BID Cholecalciferol (Vitamin D3) [Vitamin D3] 2,000 unit PO DAILY Aspirin [Ecotrin] 81 mg PO DAILY Carbidopa/Levodopa 25-100 [Sinemet 25-100] 1 tablet PO BEDTIME Omeprazole 20 mg PO AC BREAKFAST Calcium Carbonate/Vitamin D3 [Calcium 600-Vit D3 400 Tablet] 2 each PO DAILY Docusate Sodium 100 mg PO BID Multivitamin with Minerals [Multivitamins with Minerals] 1 each PO DAILY - Follow Up or Referral Follow Up: Roman Hill Jr., MD [Physician] - 11/29/16 1:15 pm - Forms/Instructions Instructions: Leg Fracture (DC) Exam - Constitutional Vitals: Period Temp Pulse Resp BP Sys/Leonardo Pulse Ox Last 24 Hr 98.1 F-99.6 F 73-87 16-18 118-137/66-71 96-100 General appearance: no acute distress - Head Head exam: Present: normocephalic, atraumatic - Eye Eye exam: Present: EOMI Pupils: Present: JODY - Respiratory Respiratory exam: Present: clear to auscultation bilaterally - Cardiovascular Cardiovascular exam: Present: regular rate and rhythm - GI/Abdominal GI/Abdominal exam: Present: normal bowel sounds, soft - Neurological Exam Neurological exam: Present: alert, oriented X3, CN II-XII intact - Psychiatric Psychiatric exam: Present: normal affect, normal mood - Skin Skin exam: Present: warm, intact Discharge Results Labs on day of discharge: Labs from last 24 hours 11/01/16 05:50 WBC 8.7 RBC 2.89 L Hgb 8.7 L Hct 26.8 L MCV 92.7 MCH 30 MCHC 32.5 RDW 13.9 Plt Count 99 L MPV 12.2 H Neut % (Auto) 77.2 H Lymph % (Auto) 10.0 L Cotton % (Auto) 10.9 Eos % (Auto) 1.1 Baso % (Auto) 0.2 Neut # (Auto) 6.8 Lymph # (Auto) 0.9 L Cotton # (Auto) 1.0 H Eos # (Auto) 0.1 Baso # (Auto) 0.0 Immature Gran % 0.6 Nucleated RBC % 0.0 Immature Gran # 0.05 Nucleated RBCs # 0.00 Platelet Estimate Decreased Hypochromasia Slight DS: Provider Date of admission: 10/29/16 00:50 Primary care physician: . No PCP Attending physician on admission: Joe Rodriguez Consults: 10/29/16 02:13 Consult to Pharmacy [CONS] Routine Reason for Pharmacy Consult: Adjust Meds Renal Funct 10/29/16 13:11 Consult to Case Mgmt/Social Srvs [CONS] Routine Reason for Case Mgmt/Social Srvs: Rehab Home Health Equipment Consult Comment: Bedside Commode, CPM, Walker Consult to Occupational Therapy [CONS] Routine Reason for Occupational Therapy: Evaluate and Treat Consult Comment: ADL's Consult to Physical Therapy [CONS] Routine Reason for Physical Therapy: Evaluate and Treat Gait Training Start Therapy: Tomorrow Consult Comment: 30# pwb Discharging clinician: Marilynn Sanchez MD Expected date of discharge: 11/01/16
--- NOTE | 2016-11-01 11:42 | Pathology Report from [facility] ---
ACCESSION # : [id number] PATIENT NAME : Devyn Gallegos ORDERING DR : MANOJ WOOTEN MD CLINICAL HX: Fractured right femur POST-OP DX: Same SPECIMEN INFO: 1 Plate, 7 screws GROSS DESCRIPTION: The speicmen is received in formalin labeled "DEVYN GRAHAM" consists of a plate and seven screws, submitted for gross exam only. DIAGNOSIS FOR DEVYN GALLEGOS: Orthopedic hardware (1 plate, 7 screws), gross only. SERVICE DATE: 10/31/2016 REPORT DATE: 11/01/2016 PATHOLOGIST: Diego Gan M.D. [facility]
[2016-11-01 13:03] VITALS: BP 130/69
== END 2016-11-01 14:06 | DRG 481 ==
LOC: EDBD → EDUNIT# → N.ED 22:08 → SUATTDRO 10-29 00:50 → N.EDINP 10-29 00:50 → N.3E 10-29 01:55
PROVIDERS: ADMIT Student in an Organized Health Care Education/Training Program; ATTEND Family Medicine

== ENCOUNTER 2019-08-11 17:21 | Inpatient (IN) ==
[~2019-08-11 17:21] MED LIST: LIDOCAINE 1% 20 ML VIAL ONE; MIDAZOLAM 2 MG/2 ML VIAL ONE; NOREPINEPHRINE 4 MG/4 ML VIAL IV ONE; fentaNYL 100 MCG/2 ML VIAL ONE
[2019-08-11] MEDS ORDERED: TIROFIBAN 5,000 MCG/100 ML PREMIX IV ONE (17:23)
[2019-08-11] MEDS ORDERED: HEPARIN 5,000 UNIT/1 ML VIAL ONE (17:23)
[2019-08-11] MEDS ORDERED: ONDANSETRON 4 MG/2 ML VIAL IV PRN (17:24)
[2019-08-11] MEDS ORDERED: guaiFENesin/DM ER 600-30 MG TABLET PO PRN (17:24)
[2019-08-11] MEDS ORDERED: PROMETHAZINE 25 MG/1 ML VIAL IM PRN (17:24)
[2019-08-11] MEDS ORDERED: DOCUSATE SODIUM 100 MG CAPSULE PO PRN (17:24)
[2019-08-11] MEDS ORDERED: MORPHINE 4 MG/1 ML VIAL IV PRN (17:24)
[2019-08-11] MEDS ORDERED: LACTULOSE 20 GM/30 ML UDCUP PO PRN (17:24)
[2019-08-11] MEDS ORDERED: MAGNESIUM SULF RIDER 4 GM in PREMIX 1 EACH IV PRN (17:24)
[2019-08-11] MEDS ORDERED: MAGNESIUM SULF RIDER 2 GM in PREMIX 1 EACH IV PRN (17:24)
[2019-08-11] MEDS: SODIUM CHLORIDE 0.9% 1,000 ML IV SCH (17:25)
[2019-08-11] MEDS ORDERED: TIROFIBAN 5,000 MCG/100 ML PREMIX IV SCH (17:29)
[2019-08-11] MEDS ORDERED: HEPARIN/NACL 0.9% 2 UNITS/ML 500 ML IV ONE (17:39)
[2019-08-11] MEDS ORDERED: ATROPINE 1 MG/10 ML SYRINGE ONE (17:40)
[2019-08-11] MEDS ORDERED: ASPIRIN 325 MG TABLET ONE (18:05)
[2019-08-11] MEDS ORDERED: TICAGRELOR 90 MG TABLET ONE (18:06)
[2019-08-11] MEDS ORDERED: PANTOPRAZOLE 40 MG TABLET PO ONE (18:23)
[2019-08-11] MEDS ORDERED: NOREPINEPHRINE 8 MG in SODIUM CHLORIDE 0.9% 242 ML IV PRN (18:24)
[2019-08-11 19:44] LABS: Apearance,Urine Slightly Hazy (Clear); Bilirubin,Urine Negative (Negative); Blood, Urine Small mg/dL (Negative); Glucose,Urine (UA) Negative (Negative); Granular Casts,Urine 1 /LPF (0-1); Hyaline Casts,Urine 31 /LPF (0-3); Ketones,Urine Negative (Negative); Mucus,Urine Occasional /LPF (Occasional); Nitrite,Urine Negative (Negative); Protein,Urine Negative; RBC,Urine 3 /HPF (0-4); Urine Color Yellow (Yellow); Urine Specific Gravity 1.019 (1.001-1.035); Urine Urobilinogen < 2.0 EU/DL (0.2-1.0); WBC,Urine 1 /HPF (0-6)
[2019-08-11 19:55] LABS: Basophils # 0.1 10*3/uL (0.0-0.2); Basophils % 0.3 % (0.0-0.8); Eosinophils % 0.2 % (0.00-10.9); Hematocrit 34.1 VOL% (42.0-52.0); Hemoglobin 11.1 GM/DL (14.0-18.0); Immature Granulocytes % 0.8 %; Immature Granulocytes Absolute 0.13 #; Lymphocytes # 1.3 10*3/uL (1.4-4.0); Lymphocytes % 7.6 % (21.2-54.2); Mean Corpuscular HGB Conc 32.6 GM/DL (32-36); Mean Corpuscular Volume 96.3 FL (87-102); Mean Platelet Volume 12.6 FL (9.6-12.0); Monocytes % 4.8 % (1.7-12.7); Neutrophils % 86.3 % (38.7-73.9); Platelet Count 219 T/CUMM (130-400); Red Blood Count 3.54 MC/CUMM (3.8-5.5); Red Cell Distribution Width 13.2 % (9.3-17.3)
[2019-08-11 20:35] LABS: Albumin 3.3 G/DL (3.4-5.0); Bilirubin,Total 0.6 MG/DL (0.2-1.0); Calcium 8.5 MG/DL (8.5-10.1); Osmolality,Calculated 286.4 MOS/KG (273-304); Risk Ratio 3.37; Thyroid Stimulating Hormone 2.3 uIU/ml (0.358-3.74); Total Protein 6.7 G/DL (6.4-8.3); VLDL CHOLESTEROL 13.4 MG/DL
[2019-08-11] MEDS ORDERED: ENOXAPARIN 30 MG/0.3 ML SYRINGE SUBCUT SCH (22:00)
[2019-08-11] MEDS: ROSUVASTATIN 20 MG TABLET PO SCH (22:04)
[2019-08-11] MEDS: cycloSPORINE 25 MG CAPSULE PO SCH (22:05)
[2019-08-11] MEDS: TICAGRELOR 90 MG TABLET PO SCH (22:06)
[2019-08-11] MEDS: POTASSIUM CHLORIDE 20 MEQ TABLET PO PRN (22:06)
[2019-08-11] MEDS: CARBIDOPA/LEVODOPA 25-100 MG TABLET PO SCH (22:06)
[2019-08-12] MEDS: SODIUM CHLORIDE 0.9% 1,000 ML IV SCH ×3 (00:26→08:30)
[2019-08-12] MEDS ORDERED: AMIODARONE INJ 450 MG in DEXTROSE 5% 241 ML IV SCH ×2 (01:00→07:15)
[2019-08-12] MEDS ORDERED: AMIODARONE 450 MG/9 ML VIAL IV ONE (01:01)
[2019-08-12 04:37] LABS: Basophils % 0.2 % (0.0-0.8); Eosinophils % 0.1 % (0.00-10.9); Hematocrit 29.6 VOL% (42.0-52.0); Hemoglobin 9.6 GM/DL (14.0-18.0); Immature Granulocytes % 0.6 %; Immature Granulocytes Absolute 0.07 #; Lymphocytes # 0.8 10*3/uL (1.4-4.0); Lymphocytes % 6.4 % (21.2-54.2); Mean Corpuscular HGB Conc 32.4 GM/DL (32-36); Mean Corpuscular Volume 96.4 FL (87-102); Mean Platelet Volume 12.4 FL (9.6-12.0); Monocytes % 6.2 % (1.7-12.7); Neutrophils % 86.5 % (38.7-73.9); Red Blood Count 3.07 MC/CUMM (3.8-5.5); Red Cell Distribution Width 13.4 % (9.3-17.3); White Blood Count 12.4 T/CUMM (4-12)
[2019-08-12 05:01] LABS: Platelet Count 140 T/CUMM (130-400)
[2019-08-12 05:26] LABS: Alanine Aminotransferase < 6 U/L (16-61); Albumin 2.8 G/DL (3.4-5.0); Alkaline Phosphatase 71 U/L (45-117); Aspartate Amino Transferase 141 U/L (0-37); Blood Urea Nitrogen 16 MG/DL (7-18); CKMB % 11.6 %; Calcium 8.1 MG/DL (8.5-10.1); Estimated Glom Filtration Rate 66 ML/MIN; Glucose 120 MG/DL (74-106); Osmolality,Calculated 289.7 MOS/KG (273-304); Total Protein 5.7 G/DL (6.4-8.3)
[2019-08-12] MEDS: PANTOPRAZOLE 40 MG TABLET PO SCH (08:50)
[2019-08-12] MEDS: TICAGRELOR 90 MG TABLET PO SCH ×2 (08:51→22:00)
[2019-08-12] MEDS: cycloSPORINE 25 MG CAPSULE PO SCH ×2 (08:51→22:00)
[2019-08-12] MEDS: ASPIRIN CHEW 81 MG TABLET PO SCH (08:51)
[2019-08-12] MEDS ORDERED: FUROSEMIDE 40 MG/4 ML VIAL IV ONE (09:17)
[2019-08-12 09:31] LABS: ABG Base Excess -4.1 MMOL/L (-2.5-2.5); ABG Oxygen Saturation 95.9 % (95-100); ABG PCO2 36.2 MM HG (35-48); ABG PH 7.365 (7.35-7.45); ABG PO2 78.6 MM HG (80-95); ABG TCO2 18.7 MMOL/L (23-27); Allen Test Positive
[2019-08-12] MEDS: PIPERACILLIN/TAZOBACTAM 3,375 MG in SODIUM CHLORIDE 0.9% 100 ML IV SCH ×2 (10:19→17:48)
[2019-08-12] MEDS: carvediloL 3.125 MG TABLET PO SCH ×2 (10:19→22:00)
[2019-08-12] MEDS: ALBUTEROL/IPRATROPIUM 3 ML NEB RESP TX SCH ×4 (11:34→23:10)
[2019-08-12] MEDS: FUROSEMIDE 40 MG/4 ML VIAL IV SCH (15:52)
[2019-08-12] MEDS: LORazepam 2 MG/1 ML VIAL IV PRN (22:00)
[2019-08-12] MEDS: CARBIDOPA/LEVODOPA 25-100 MG TABLET PO SCH (22:00)
[2019-08-12] MEDS: ROSUVASTATIN 20 MG TABLET PO SCH (22:00)
[2019-08-13] MEDS: PIPERACILLIN/TAZOBACTAM 3,375 MG in SODIUM CHLORIDE 0.9% 100 ML IV SCH ×3 (02:46→17:08)
[2019-08-13] MEDS: ALBUTEROL/IPRATROPIUM 3 ML NEB RESP TX SCH ×5 (03:15→19:23)
[2019-08-13 04:39] LABS: Basophils % 0.1 % (0.0-0.8); Hematocrit 32.6 VOL% (42.0-52.0); Hemoglobin 10.8 GM/DL (14.0-18.0); Immature Granulocytes % 0.6 %; Immature Granulocytes Absolute 0.08 #; Lymphocytes # 0.8 10*3/uL (1.4-4.0); Lymphocytes % 5.3 % (21.2-54.2); Mean Corpuscular HGB Conc 33.1 GM/DL (32-36); Mean Corpuscular Volume 93.9 FL (87-102); Mean Platelet Volume 12.9 FL (9.6-12.0); Monocytes % 6.8 % (1.7-12.7); Neutrophils % 87.2 % (38.7-73.9); Platelet Count 138 T/CUMM (130-400); Red Blood Count 3.47 MC/CUMM (3.8-5.5); Red Cell Distribution Width 13.5 % (9.3-17.3); White Blood Count 14.2 T/CUMM (4-12)
[2019-08-13 05:02] LABS: Albumin 2.7 G/DL (3.4-5.0); Bilirubin,Total 0.8 MG/DL (0.2-1.0); Calcium 8.1 MG/DL (8.5-10.1); Osmolality,Calculated 291.7 MOS/KG (273-304); Total Protein 6.3 G/DL (6.4-8.3)
[2019-08-13] MEDS: LORazepam 2 MG/1 ML VIAL IV PRN (05:21)
[2019-08-13] MEDS: POTASSIUM CHLORIDE 20 MEQ TABLET PO PRN (07:13)
[2019-08-13] MEDS ORDERED: FUROSEMIDE 20 MG/2 ML VIAL ONE (07:51)
[2019-08-13] MEDS: FUROSEMIDE 40 MG/4 ML VIAL IV SCH ×2 (08:24→16:52)
[2019-08-13] MEDS: ASPIRIN CHEW 81 MG TABLET PO SCH (08:37)
[2019-08-13] MEDS: cycloSPORINE 25 MG CAPSULE PO SCH ×2 (08:37→21:57)
[2019-08-13] MEDS: TICAGRELOR 90 MG TABLET PO SCH ×2 (08:37→20:59)
[2019-08-13] MEDS: PANTOPRAZOLE 40 MG TABLET PO SCH (08:37)
[2019-08-13] MEDS: carvediloL 3.125 MG TABLET PO SCH ×3 (08:37→20:59)
[2019-08-13 11:48] LABS: CKMB % 2.5 %
[2019-08-13 11:50] LABS: Troponin I 27.4 NG/ML (0.00-0.045)
[2019-08-13] MEDS ORDERED: diphenhydrAMINE CAP 25 MG CAPSULE PO PRN (15:09)
[2019-08-13] MEDS ORDERED: IBUPROFEN 400 MG TABLET PO PRN (19:56)
[2019-08-13] MEDS: ROSUVASTATIN 20 MG TABLET PO SCH (20:58)
[2019-08-13] MEDS: CARBIDOPA/LEVODOPA 25-100 MG TABLET PO SCH (20:59)
[2019-08-13 21:02] LABS: Apearance,Urine CLEAR (Clear); Bilirubin,Urine Negative (Negative); Blood, Urine Small mg/dL (Negative); Glucose,Urine (UA) Negative (Negative); Hyaline Casts,Urine 4 /LPF (0-3); Ketones,Urine Negative (Negative); Mucus,Urine Occasional /LPF (Occasional); Nitrite,Urine Negative (Negative); Protein,Urine Negative; RBC,Urine 1 /HPF (0-4); Urine Color Straw (Yellow); Urine Urobilinogen < 2.0 EU/DL (0.2-1.0); WBC,Urine <1 /HPF (0-6)
[2019-08-13] MEDS: LEVOFLOXACIN INJ 500 MG in PREMIX 1 EACH IV SCH (21:04)
[2019-08-14] MEDS: ALBUTEROL/IPRATROPIUM 3 ML NEB RESP TX SCH ×7 (01:01→23:50)
[2019-08-14] MEDS: PIPERACILLIN/TAZOBACTAM 3,375 MG in SODIUM CHLORIDE 0.9% 100 ML IV SCH ×3 (01:13→18:15)
[2019-08-14 04:46] LABS: Basophils % 0.2 % (0.0-0.8); Eosinophils % 0.2 % (0.00-10.9); Hematocrit 31.4 VOL% (42.0-52.0); Hemoglobin 10.3 GM/DL (14.0-18.0); Immature Granulocytes % 0.7 %; Immature Granulocytes Absolute 0.08 #; Lymphocytes # 0.9 10*3/uL (1.4-4.0); Lymphocytes % 6.9 % (21.2-54.2); Mean Corpuscular HGB Conc 32.8 GM/DL (32-36); Mean Corpuscular Volume 94.3 FL (87-102); Mean Platelet Volume 13.3 FL (9.6-12.0); Monocytes % 7.5 % (1.7-12.7); Neutrophils % 84.5 % (38.7-73.9); Platelet Count 126 T/CUMM (130-400); Red Blood Count 3.33 MC/CUMM (3.8-5.5); Red Cell Distribution Width 13.2 % (9.3-17.3); White Blood Count 12.3 T/CUMM (4-12)
[2019-08-14 05:07] LABS: Albumin 2.5 G/DL (3.4-5.0); Bilirubin,Total 1.1 MG/DL (0.2-1.0); Calcium 7.7 MG/DL (8.5-10.1); Osmolality,Calculated 282.4 MOS/KG (273-304); Total Protein 5.5 G/DL (6.4-8.3)
[2019-08-14] MEDS: POTASSIUM CHLORIDE 20 MEQ TABLET PO PRN (05:35)
[2019-08-14] MEDS: carvediloL 3.125 MG TABLET PO SCH ×2 (05:37→09:18)
[2019-08-14] MEDS: ASPIRIN CHEW 81 MG TABLET PO SCH (08:27)
[2019-08-14] MEDS: FUROSEMIDE 40 MG/4 ML VIAL IV SCH ×2 (08:27→16:22)
[2019-08-14] MEDS: TICAGRELOR 90 MG TABLET PO SCH ×2 (08:28→20:33)
[2019-08-14] MEDS: CYCLOSPORINE PO SCH ×2 (08:28→20:33)
[2019-08-14] MEDS: PANTOPRAZOLE 40 MG TABLET PO SCH (08:28)
[2019-08-14] MEDS: MAGNESIUM HYDROXIDE SUSP 30 ML UDCUP PO PRN (11:24)
[2019-08-14] MEDS: methylPREDNISolone SOD SUC 125 MG/2 ML VIAL IV SCH ×2 (11:24→18:25)
[2019-08-14] MEDS ORDERED: FUROSEMIDE 40 MG TABLET PO SCH (16:00)
[2019-08-14] MEDS: POLYETHYLENE GLYCOL POWDER 17 GM PACK PO SCH (16:23)
[2019-08-14] MEDS: CARBIDOPA/LEVODOPA 25-100 MG TABLET PO SCH (20:33)
[2019-08-14] MEDS: ROSUVASTATIN 20 MG TABLET PO SCH (20:33)
[2019-08-14] MEDS: carvediloL 6.25 MG TABLET PO SCH (20:33)
[2019-08-14] MEDS: DOCUSATE SODIUM 100 MG CAPSULE PO SCH (20:33)
[2019-08-14] MEDS: LEVOFLOXACIN INJ 500 MG in PREMIX 1 EACH IV SCH (22:42)
[2019-08-15] MEDS: ALBUTEROL/IPRATROPIUM 3 ML NEB RESP TX SCH ×6 (02:00→23:29)
[2019-08-15] MEDS: methylPREDNISolone SOD SUC 125 MG/2 ML VIAL IV SCH ×3 (03:03→18:35)
[2019-08-15] MEDS: PIPERACILLIN/TAZOBACTAM 3,375 MG in SODIUM CHLORIDE 0.9% 100 ML IV SCH ×3 (03:03→18:37)
[2019-08-15 06:02] LABS: Basophils % 0.1 % (0.0-0.8); Hematocrit 30.8 VOL% (42.0-52.0); Immature Granulocytes % 0.9 %; Lymphocytes # 0.4 10*3/uL (1.4-4.0); Lymphocytes % 3.3 % (21.2-54.2); Mean Corpuscular HGB Conc 32.5 GM/DL (32-36); Mean Corpuscular Volume 95.4 FL (87-102); Mean Platelet Volume 13.1 FL (9.6-12.0); Monocytes % 2.8 % (1.7-12.7); Neutrophils % 92.9 % (38.7-73.9); Platelet Count 144 T/CUMM (130-400); Red Blood Count 3.23 MC/CUMM (3.8-5.5); Red Cell Distribution Width 13.2 % (9.3-17.3); White Blood Count 11.4 T/CUMM (4-12)
[2019-08-15 06:32] LABS: Lymphocytes 1 % (20-55); Segmented Neutrophils 96 % (50-85); Total Cells Counted 100
[2019-08-15 06:33] LABS: Hypochromasia 1+; Microcytosis 1+; Platelet Estimate Adequate
[2019-08-15] MEDS: FUROSEMIDE 40 MG/4 ML VIAL IV SCH (09:00)
[2019-08-15] MEDS: CYCLOSPORINE PO SCH ×2 (09:02→21:02)
[2019-08-15] MEDS: MULTIVITAMIN (CENTRUM) TABLET PO SCH (09:03)
[2019-08-15] MEDS: CALCIUM (CARBONATE)/VITAMIN D 600 MG-400 UNIT TABLET PO SCH (09:03)
[2019-08-15] MEDS: CHOLECALCIFEROL 1,000 UNIT TABLET PO SCH (09:04)
[2019-08-15] MEDS: TICAGRELOR 90 MG TABLET PO SCH ×2 (09:04→21:02)
[2019-08-15] MEDS: POLYETHYLENE GLYCOL POWDER 17 GM PACK PO SCH (09:04)
[2019-08-15] MEDS: ASPIRIN CHEW 81 MG TABLET PO SCH (09:04)
[2019-08-15] MEDS: DOCUSATE SODIUM 100 MG CAPSULE PO SCH ×2 (09:04→21:02)
[2019-08-15] MEDS: PANTOPRAZOLE 40 MG TABLET PO SCH (09:04)
[2019-08-15] MEDS: MAGNESIUM HYDROXIDE SUSP 30 ML UDCUP PO PRN (09:05)
[2019-08-15] MEDS: carvediloL 6.25 MG TABLET PO SCH ×2 (09:05→21:02)
[2019-08-15 12:23] LABS: Calcium 7.9 MG/DL (8.5-10.1); Osmolality,Calculated 289.5 MOS/KG (273-304)
[2019-08-15] MEDS: POTASSIUM CHLORIDE 20 MEQ TABLET PO PRN ×2 (12:54→16:11)
[2019-08-15] MEDS: CARBIDOPA/LEVODOPA 25-100 MG TABLET PO SCH (21:02)
[2019-08-15] MEDS: ROSUVASTATIN 20 MG TABLET PO SCH (21:02)
[2019-08-15] MEDS: LEVOFLOXACIN INJ 500 MG in PREMIX 1 EACH IV SCH (22:42)
[2019-08-16] MEDS: PIPERACILLIN/TAZOBACTAM 3,375 MG in SODIUM CHLORIDE 0.9% 100 ML IV SCH ×3 (01:48→17:27)
[2019-08-16] MEDS: methylPREDNISolone SOD SUC 125 MG/2 ML VIAL IV SCH ×3 (02:39→18:24)
[2019-08-16] MEDS: ALBUTEROL/IPRATROPIUM 3 ML NEB RESP TX SCH ×5 (03:29→21:08)
[2019-08-16 04:28] LABS: Hematocrit 26.7 VOL% (42.0-52.0); Hemoglobin 8.7 GM/DL (14.0-18.0); Immature Granulocytes % 0.9 %; Immature Granulocytes Absolute 0.07 #; Lymphocytes # 0.4 10*3/uL (1.4-4.0); Lymphocytes % 4.7 % (21.2-54.2); Mean Corpuscular HGB Conc 32.6 GM/DL (32-36); Mean Corpuscular Volume 95.4 FL (87-102); Mean Platelet Volume 12.7 FL (9.6-12.0); Monocytes % 4.5 % (1.7-12.7); Neutrophils % 89.9 % (38.7-73.9); Platelet Count 124 T/CUMM (130-400); Red Cell Distribution Width 13.2 % (9.3-17.3); White Blood Count 7.5 T/CUMM (4-12)
[2019-08-16 04:49] LABS: Calcium 7.9 MG/DL (8.5-10.1); Osmolality,Calculated 297.1 MOS/KG (273-304)
[2019-08-16 04:53] LABS: Lymphocytes 4 % (20-55); Microcytosis Slight; Platelet Estimate Adequate; Segmented Neutrophils 92 % (50-85); Total Cells Counted 100
[2019-08-16 04:54] LABS: Polychromasia Slight
[2019-08-16] MEDS: POTASSIUM CHLORIDE 20 MEQ TABLET PO PRN (05:33)
[2019-08-16] MEDS ORDERED: FUROSEMIDE 20 MG/2 ML VIAL IM SCH (09:00)
[2019-08-16] MEDS: CALCIUM (CARBONATE)/VITAMIN D 600 MG-400 UNIT TABLET PO SCH (09:11)
[2019-08-16] MEDS: CHOLECALCIFEROL 1,000 UNIT TABLET PO SCH (09:12)
[2019-08-16] MEDS: CYCLOSPORINE PO SCH ×2 (09:13→20:59)
[2019-08-16] MEDS: ASPIRIN CHEW 81 MG TABLET PO SCH (09:14)
[2019-08-16] MEDS: TICAGRELOR 90 MG TABLET PO SCH ×2 (09:14→21:06)
[2019-08-16] MEDS: MULTIVITAMIN (CENTRUM) TABLET PO SCH (09:15)
[2019-08-16] MEDS: DOCUSATE SODIUM 100 MG CAPSULE PO SCH ×2 (09:15→21:08)
[2019-08-16] MEDS: carvediloL 6.25 MG TABLET PO SCH ×2 (09:15→21:07)
[2019-08-16] MEDS: PANTOPRAZOLE 40 MG TABLET PO SCH (09:15)
[2019-08-16] MEDS: POLYETHYLENE GLYCOL POWDER 17 GM PACK PO SCH (09:16)
[2019-08-16] MEDS: FUROSEMIDE 20 MG/2 ML VIAL IV SCH (09:16)
[2019-08-16] MEDS: CARBIDOPA/LEVODOPA 25-100 MG TABLET PO SCH (21:05)
[2019-08-16] MEDS: ROSUVASTATIN 20 MG TABLET PO SCH (21:06)
[2019-08-16] MEDS: LEVOFLOXACIN INJ 500 MG in PREMIX 1 EACH IV SCH (21:08)
[2019-08-17] MEDS: ALBUTEROL/IPRATROPIUM 3 ML NEB RESP TX SCH ×6 (00:31→20:05)
[2019-08-17] MEDS: methylPREDNISolone SOD SUC 125 MG/2 ML VIAL IV SCH ×3 (03:05→18:00)
[2019-08-17] MEDS: PIPERACILLIN/TAZOBACTAM 3,375 MG in SODIUM CHLORIDE 0.9% 100 ML IV SCH ×3 (03:53→17:56)
[2019-08-17 06:24] LABS: Hematocrit 25.7 VOL% (42.0-52.0); Hemoglobin 8.3 GM/DL (14.0-18.0); Immature Granulocytes % 3.2 %; Immature Granulocytes Absolute 0.23 #; Lymphocytes # 0.3 10*3/uL (1.4-4.0); Lymphocytes % 4.3 % (21.2-54.2); Mean Corpuscular HGB Conc 32.3 GM/DL (32-36); Mean Corpuscular Volume 95.5 FL (87-102); Mean Platelet Volume 12.8 FL (9.6-12.0); Neutrophils % 85.5 % (38.7-73.9); Platelet Count 147 T/CUMM (130-400); Red Blood Count 2.69 MC/CUMM (3.8-5.5); Red Cell Distribution Width 13.3 % (9.3-17.3); White Blood Count 7.2 T/CUMM (4-12)
[2019-08-17 06:39] LABS: Calcium 8.2 MG/DL (8.5-10.1)
[2019-08-17 07:14] LABS: Band Neutrophils 4 % (0-10); Lymphocytes 8 % (20-55); Platelet Estimate Adequate; Segmented Neutrophils 83 % (50-85); Total Cells Counted 100
[2019-08-17 07:15] LABS: Anisocytosis 1+; Macrocytosis 1+
[2019-08-17] MEDS: FUROSEMIDE 20 MG/2 ML VIAL IV SCH (09:05)
[2019-08-17] MEDS: TICAGRELOR 90 MG TABLET PO SCH ×2 (09:07→21:51)
[2019-08-17] MEDS: CALCIUM (CARBONATE)/VITAMIN D 600 MG-400 UNIT TABLET PO SCH (09:08)
[2019-08-17] MEDS: CHOLECALCIFEROL 1,000 UNIT TABLET PO SCH (09:09)
[2019-08-17] MEDS: DOCUSATE SODIUM 100 MG CAPSULE PO SCH ×2 (09:09→21:53)
[2019-08-17] MEDS: MULTIVITAMIN (CENTRUM) TABLET PO SCH (09:09)
[2019-08-17] MEDS: ASPIRIN CHEW 81 MG TABLET PO SCH (09:09)
[2019-08-17] MEDS: CYCLOSPORINE 25 MG PO SCH ×2 (09:10→22:04)
[2019-08-17] MEDS: PANTOPRAZOLE 40 MG TABLET PO SCH (09:10)
[2019-08-17] MEDS: carvediloL 6.25 MG TABLET PO SCH ×2 (09:10→21:52)
[2019-08-17] MEDS: POLYETHYLENE GLYCOL POWDER 17 GM PACK PO SCH (09:11)
[2019-08-17] MEDS: ROSUVASTATIN 20 MG TABLET PO SCH (21:50)
[2019-08-17] MEDS: CARBIDOPA/LEVODOPA 25-100 MG TABLET PO SCH (21:52)
[2019-08-17] MEDS: LEVOFLOXACIN INJ 500 MG in PREMIX 1 EACH IV SCH (22:10)
[2019-08-18] MEDS: ALBUTEROL/IPRATROPIUM 3 ML NEB RESP TX SCH ×3 (00:15→08:23)
[2019-08-18] MEDS: methylPREDNISolone SOD SUC 125 MG/2 ML VIAL IV SCH (03:49)
[2019-08-18] MEDS: PIPERACILLIN/TAZOBACTAM 3,375 MG in SODIUM CHLORIDE 0.9% 100 ML IV SCH (03:50)
[2019-08-18 05:41] LABS: Hematocrit 25.5 VOL% (42.0-52.0); Hemoglobin 8.3 GM/DL (14.0-18.0); Immature Granulocytes % 4.1 %; Immature Granulocytes Absolute 0.36 #; Lymphocytes # 0.5 10*3/uL (1.4-4.0); Lymphocytes % 5.1 % (21.2-54.2); Mean Corpuscular HGB Conc 32.5 GM/DL (32-36); Mean Corpuscular Volume 94.8 FL (87-102); Mean Platelet Volume 13.1 FL (9.6-12.0); Monocytes % 8.4 % (1.7-12.7); Neutrophils % 82.4 % (38.7-73.9); Platelet Count 164 T/CUMM (130-400); Red Blood Count 2.69 MC/CUMM (3.8-5.5); Red Cell Distribution Width 13.2 % (9.3-17.3); White Blood Count 8.8 T/CUMM (4-12)
[2019-08-18 05:56] LABS: Calcium 8.6 MG/DL (8.5-10.1)
[2019-08-18] MEDS: PANTOPRAZOLE 40 MG TABLET PO SCH (10:21)
[2019-08-18] MEDS: CHOLECALCIFEROL 1,000 UNIT TABLET PO SCH (10:21)
[2019-08-18] MEDS: CALCIUM (CARBONATE)/VITAMIN D 600 MG-400 UNIT TABLET PO SCH (10:21)
[2019-08-18] MEDS: carvediloL 6.25 MG TABLET PO SCH (10:21)
[2019-08-18] MEDS: MULTIVITAMIN (CENTRUM) TABLET PO SCH (10:21)
[2019-08-18] MEDS: DOCUSATE SODIUM 100 MG CAPSULE PO SCH (10:22)
[2019-08-18] MEDS: TICAGRELOR 90 MG TABLET PO SCH (10:22)
[2019-08-18] MEDS: POLYETHYLENE GLYCOL POWDER 17 GM PACK PO SCH (10:23)
[2019-08-18] MEDS: FUROSEMIDE 20 MG/2 ML VIAL IV SCH (10:24)
[2019-08-18] MEDS: CYCLOSPORINE 25 MG PO SCH (10:27)
[2019-08-18] MEDS: ASPIRIN CHEW 81 MG TABLET PO SCH (10:27)
[2019-08-18 12:32] VITALS: BP 145/68
== END 2019-08-18 15:02 | disposition home or self-care (01) | DRG 270 ==
LOC: N.CL 17:21 → N.CC 17:24 → N.CL 18:13 → N.CC 18:29 → N.TELEN 08-16 16:40
PROVIDERS: ADMIT Internal Medicine Cardiovascular Disease; ATTEND Internal Medicine Cardiovascular Disease